=== PATIENT | female | born 1975 | race African-American/Black ===

== ENCOUNTER 2016-08-28 17:18 | Emergency (ER) | payer OTHER, BC ==
[~2016-08-28] VITALS: Ht 162.6 cm; Wt 147.0 kg
[~2016-08-28 17:18] MED LIST: BACT800T5 PO; ONETAB13 PO
[2016-08-28 17:19] VITALS: BP 166/85; PULSE 94; RESP 20; TEMP 98.6; O2SAT 98
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
[2016-08-28] MEDS ORDERED: ORPHENADRINE INJ 60 MG/2 ML AMP IM ONE (19:00)
[2016-08-28] MEDS ORDERED: DEXAMETHASONE SOD PHOS 20 MG/5 ML VIAL IM ONE (19:00)
[2016-08-28] MEDS ORDERED: KETOROLAC TROMETHAMINE 60 MG/2 ML (IM) VIAL IM ONE (19:00)
[2016-08-28] MEDS ORDERED: CYCL1TAB29 PO (19:04)
[2016-08-28] MEDS ORDERED: IBUP800T23 PO (19:04)
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
== END 2016-08-28 19:43 | disposition home or self-care (01) ==
LOC: NEPD 17:18
DX: T14.8 Other injury of unspecified body region (principal); M62.838 Other muscle spasm; V43.92XA Unspecified car occupant injured in collision with other type car in traffic accident, initial encounter; Y92.488 Other paved roadways as the place of occurrence of the external cause
CPT/HCPCS: 96372; 99284; J1100; J1885; J2360

== ENCOUNTER 2017-02-11 22:09 | Emergency (ER) | payer BC ==
[~2017-02-11] VITALS: Ht 99.1 cm; Wt 102.0 kg
[~2017-02-11 22:09] MED LIST changes: -BACT800T5 PO; +CYCL10TA PO; +IBUP1TAB7 PO; -ONETAB13 PO
[2017-02-11 22:10] VITALS: BP 161/100; PULSE 75; RESP 16; TEMP 98.6; O2SAT 99
[2017-02-11] MEDS ORDERED: AMOX875T PO (23:21)
[2017-02-11] MEDS ORDERED: FLUT1SPR5 EACH NARE (23:21)
--- NOTE | 2017-02-11 23:25 | PD ---
HPI Chief Complaint: Cold / Flu Symptoms Time Seen by Provider: 23:20 Travel History International Travel<30 days: No Contact w/Intl Traveler<30days: No Traveled to known affect area: No History of Present Illness HPI This is a 41-year-old female presents for evaluation. For the past 4 days she has had cough, congestion, sore throat. Over the past few days she has developed pain and pressure in both ears, right greater than left. Pain is throbbing, constant, unrelieved with [id number] cough and cold medications. Denies any fevers, chills, rash, recent travel. She does report that symptoms started after being exposed to a sick coworker. She has no other complaints at this time. [facility] Past Medical History Anemia: Yes Asthma: Yes Blood Disorders: No Cancer: No Cardiovascular Problems: No Diabetes: No Diminished Hearing: No Gastrointestinal Disorders: No Glaucoma: No Hepatitis: No Hiatal Hernia: No Hypertension: No Musculoskeletal: No Neurologic: No Psychiatric: No Respiratory: No Thyroid Disease: No ?: Not LMP: NOW : 4 Para: 3 Miscarriage: 1 Dilation and Curettage (D&C): Yes Tubal Ligation: Yes Past Surgical History Abdominal Surgery: Yes (LAPROSCOPY DX FIBROIDS) Section: Yes (X 3) Gynecologic Surgery: Yes (BTL) Pacemaker: No Tonsillectomy: Yes Other Surgery: Yes Social History Alcohol Use: No Tobacco Use: No Substance Use: No Allergies-Medications (Allergen,Severity, Reaction): Coded Allergies: acetaminophen (Unverified Allergy, Severe, Swelling, 02/11/17) oxycodone (Unverified Allergy, Severe, Swelling, 02/11/17) propoxyphene (Unverified Allergy, Severe, Swelling, 02/11/17) Reported Meds & Prescriptions Reported Meds & Active Scripts Active Amoxicillin 875 Mg Tab 875 Mg PO BID 10 Days Flonase Nasal [place] (Fluticasone Nasal [place]) 50 Mcg/Act [place] 100 Mcg EACH NARE BID 10 Days Review of Systems Except as stated in HPI: all other systems reviewed are Neg Physical Exam Narrative GENERAL: Well-nourished female in no acute distress SKIN: Warm and dry. HEAD: Atraumatic. Normocephalic. EYES: Pupils equal and round. No scleral icterus. No injection or drainage. ENT: No nasal bleeding or discharge. Mucous membranes pink and moist. Bilaterally air-fluid levels are present behind the tympanic membranes. The right tympanic membrane is bulging and erythematous. There is no perforation. No oropharyngeal erythema or exudate. NECK: Trachea midline. No JVD. No lymphadenopathy. CARDIOVASCULAR: Regular rate and rhythm. No murmur appreciated. RESPIRATORY: No accessory muscle use. Clear to auscultation. Breath sounds equal bilaterally. No crackles no wheezing or rhonchi Data Data Last Documented VS Vital Signs Date Time Temp Pulse Resp B/P (MAP) Pulse Ox O2 Delivery O2 Flow Rate FiO2 02/11/17 22:10 98.6 75 16 161/100 (120) 99 Room Air MDM Medical Decision Making Medical Screen Exam Complete: Yes Emergency Medical Condition: Yes Medical Record Reviewed: Yes Differential Diagnosis Eustachian tube dysfunction, serous otitis media, supperative otitis media, mastoiditis, otitis externa, bronchitis, pneumonia, influenza, pharyngitis Narrative Course Examination is consistent with upper respiratory infection, eustachian tube dysfunction with right otitis media. Patient is being discharged with Flonase and amoxicillin prescriptions. Diagnosis Primary Impression: Upper respiratory infection Qualified Codes: J06.9 - Acute upper respiratory infection, unspecified Additional Impressions: Right otitis media Qualified Codes: H66.001 - Acute suppurative otitis media without spontaneous rupture of ear drum, right ear Eustachian tube dysfunction Qualified Codes: H69.83 - Other specified disorders of eustachian tube, bilateral Additional Instructions: Medication as prescribed. Stay well hydrated well-nourished, get plenty of rest. Continue [id number] cough and cold medications as needed. Follow- up with primary care physician as needed and return for any emergent medical conditions. Med/Other Pt SpecificInfo: Prescription(s) given Scripts Amoxicillin (Amoxicillin) 875 Mg Tab 875 MG PO BID for Infection for 10 Days, #20 TAB 0 Refills Prov: Aníbal Lemons MD 02/11/17 Fluticasone Nasal [place] (Flonase Nasal [place]) 50 Mcg/Act [place] 100 MCG EACH NARE BID for Allergies for 10 Days, #1 BOTTLE 0 Refills Prov: Aníbal Lemons MD 02/11/17 Disposition: 01 DISCHARGE HOME Condition: Stable [place] Dawn Feb 11, 2017 23:25
== END 2017-02-11 23:49 | disposition home or self-care (01) ==
LOC: NEPD 22:09
DX: J06.9 Acute upper respiratory infection, unspecified (principal); H66.001 Acute suppurative otitis media without spontaneous rupture of ear drum, right ear; H69.83 Other specified disorders of Eustachian tube, bilateral
CPT/HCPCS: 99283